=== PATIENT | female | born 1990 | race Caucasian/White ===

== ENCOUNTER 2022-02-12 09:39 | Emergency (ER) | payer MEDICAID ==
[2022-02-12 11:44] LABS: Bilirubin,Urine NEG (Negative); Blood,Urine MOD (Negative); Color,Urine Yellow (Yellow); Protein,Urine <15 mg/dL mg/dL (Negative)
[2022-02-12] MEDS ORDERED: FAMOTIDINE 20 MG/2 ML INJ IV ONE (12:35)
[2022-02-12] MEDS ORDERED: KETOROLAC 30 MG/1 ML INJ IV ONE (12:35)
[2022-02-12] MEDS ORDERED: SODIUM CHLORIDE 0.9% 1000 ML 1,000 ML IV ONE ×2 (12:35→15:47)
[2022-02-12] MEDS ORDERED: ONDANSETRON 4 MG/2 ML INJ IV ONE ×2 (12:35→15:47)
--- NOTE | 2022-02-12 12:51 | Emergency Department Report ---
<JENARO COLEMAN - Last Filed: 02/12/22 14:25> ED Abdominal Pain HPI - General Chief Complaint: Abdominal Pain Stated Complaint: VAG BLEED (POSS MISCARRIAGE) Time Seen by Provider: 02/12/22 12:22 Source: patient Mode of arrival: Ambulatory Limitations: No Limitations - History of Present Illness Initial Comments: 31-year-old female with no significant past medical surgical history complains of abdominal pain, nausea, vomiting, fever and chills for the past 3 days. Patient states symptoms started "after having a miscarriage". Patient reports that 4 days ago she was having nausea and has a history of nausea hyperemesis with previous pregnancies so she took a test. By the next day she was having suprapubic cramping and heavy vaginal bleeding. Patient initially soaked through 2 pads but then continued to have intermittent bleeding over the last 3 days. This morning bleeding improved and now reported as only brown spotting. Since bleeding onset patient has had fevers, chills, headache, and fatigue. Yesterday temperature was 101. She denies diarrhea, dysuria, cough, or shortness of breath. She is unvaccinated for Covid. Patient did not have any care and is basing her status on home test and her miscarriage diagnosis based on her heavy vaginal bleeding the day after having a positive test. She has a history of 7 living children, 2 miscarriages, and 1 stillborn. She reports her has had a vasectomy a year ago. - Related Data Allergies Allergy/AdvReac Type Severity Reaction Status Date / Time No Known Allergies Allergy Verified 02/12/22 10:22 ED Review of Systems Comment: All other systems reviewed and negative ED Past Medical Hx - Past Medical History Previous Medical History?: No - Social History Smoking Status: Never Smoker Substance Use Type: None ED Physical Exam - General Limitations: No Limitations - Other Other exam information: General: No acute distress Head: Atraumatic Eyes: normal appearance ENT: Moist mucous membranes Neck: Normal appearance, no midline tenderness, no nuchal rigidity Chest: Clear to auscultation bilaterally CV: Regular rate and rhythm Abdomen: Soft, normal bowel sounds, suprapubic tenderness, nondistended, no rebound or guarding Back: Normal inspection Extremity: Normal inspection, full range of motion Neuro: Alert O x 3, no facial asymmetry, speech clear, no gross motor sensory deficit Psych: Appropriate behavior Skin: No rash ED Course - Reevaluation(s) Reevaluation #1: 02/12/22 14:20 Patient reassessed after pepcid, normal saline, and Zofran. She states her nausea is much improved. She states she still has a headache. test came back positive at this time. Toradol canceled and Tylenol 1 g ordered. Ultrasound ordered ED Medical Decision Making - Lab Data Result diagrams: 02/12/22 13:09 02/12/22 13:09 Lab Results 02/12/22 02/12/22 02/12/22 Range/Units 13:09 13:09 13:09 WBC 13.3 H (4.5-11.0) K/mm3 RBC 4.78 (3.65-5.03) M/mm3 Hgb 14.9 H (10.1-14.3) gm/dl Hct 44.8 H (30.3-42.9) % MCV 94 (79-97) fl MCH 31 (28-32) pg MCHC 33 (30-34) % RDW 12.7 L (13.2-15.2) % Plt Count 226 (140-440) K/mm3 Lymph % (Auto) 12.3 L (13.4-35.0) % Walsh % (Auto) 4.7 (0.0-7.3) % Eos % (Auto) 0.1 (0.0-4.3) % Baso % (Auto) 0.2 (0.0-1.8) % Lymph # (Auto) 1.6 (1.2-5.4) K/mm3 Walsh # (Auto) 0.6 (0.0-0.8) K/mm3 Eos # (Auto) 0.0 (0.0-0.4) K/mm3 Baso # (Auto) 0.0 (0.0-0.1) K/mm3 Seg Neutrophils % 82.7 H (40.0-70.0) % Seg Neutrophils # 11.0 H (1.8-7.7) K/mm3 Sodium 138 (137-145) mmol/L Potassium 4.3 (3.6-5.0) mmol/L Chloride 104.6 (98-107) mmol/L Carbon Dioxide 21 L (22-30) mmol/L Anion Gap 17 mmol/L BUN 6 L (7-17) mg/dL Creatinine 0.3 L (0.6-1.2) mg/dL Estimated GFR > 60 ml/min BUN/Creatinine Ratio 20 % Glucose 91 (65-100) mg/dL Calcium 8.8 (8.4-10.2) mg/dL Total Bilirubin 0.40 (0.1-1.2) mg/dL AST 10 (5-40) units/L ALT 14 (7-56) units/L Alkaline Phosphatase 66 (35-129) units/L Total Protein 6.8 (6.3-8.2) g/dL Albumin 4.2 (3.9-5) g/dL Albumin/Globulin Ratio 1.6 % Lipase (13-60) units/L HCG, Quant 37148 H (0-4) mIU/mL Urine Color (Yellow) Urine Turbidity (Clear) Urine pH (5.0-7.0) Ur Specific [place] (1.003-1.030) Urine Protein (Negative) mg/dL Urine Glucose (UA) (Negative) mg/dL Urine Ketones (Negative) mg/dL Urine Blood (Negative) Urine Nitrite (Negative) Urine Bilirubin (Negative) Urine Urobilinogen (<2.0) mg/dL Ur Leukocyte Esterase (Negative) Urine WBC (Auto) (0.0-6.0) /HPF Urine RBC (Auto) (0.0-6.0) /HPF U Epithel Cells (Auto) (0-13.0) /HPF Blood Type 02/12/22 02/12/22 02/12/22 Range/Units 13:17 13:17 Unknown WBC (4.5-11.0) K/mm3 RBC (3.65-5.03) M/mm3 Hgb (10.1-14.3) gm/dl Hct (30.3-42.9) % MCV (79-97) fl MCH (28-32) pg MCHC (30-34) % RDW (13.2-15.2) % Plt Count (140-440) K/mm3 Lymph % (Auto) (13.4-35.0) % Walsh % (Auto) (0.0-7.3) % Eos % (Auto) (0.0-4.3) % Baso % (Auto) (0.0-1.8) % Lymph # (Auto) (1.2-5.4) K/mm3 Walsh # (Auto) (0.0-0.8) K/mm3 Eos # (Auto) (0.0-0.4) K/mm3 Baso # (Auto) (0.0-0.1) K/mm3 Seg Neutrophils % (40.0-70.0) % Seg Neutrophils # (1.8-7.7) K/mm3 Sodium (137-145) mmol/L Potassium (3.6-5.0) mmol/L Chloride (98-107) mmol/L Carbon Dioxide (22-30) mmol/L Anion Gap mmol/L BUN (7-17) mg/dL Creatinine (0.6-1.2) mg/dL Estimated GFR ml/min BUN/Creatinine Ratio % Glucose (65-100) mg/dL Calcium (8.4-10.2) mg/dL Total Bilirubin (0.1-1.2) mg/dL AST (5-40) units/L ALT (7-56) units/L Alkaline Phosphatase (35-129) units/L Total Protein (6.3-8.2) g/dL Albumin (3.9-5) g/dL Albumin/Globulin Ratio % Lipase 27 (13-60) units/L HCG, Quant (0-4) mIU/mL Urine Color Yellow (Yellow) Urine Turbidity Clear (Clear) Urine pH 8.0 H (5.0-7.0) Ur Specific [place] 1.017 (1.003-1.030) Urine Protein <15 mg/dl (Negative) mg/dL Urine Glucose (UA) Neg (Negative) mg/dL Urine Ketones 20 (Negative) mg/dL Urine Blood Mod (Negative) Urine Nitrite Neg (Negative) Urine Bilirubin Neg (Negative) Urine Urobilinogen 4.0 (<2.0) mg/dL Ur Leukocyte Esterase Neg (Negative) Urine WBC (Auto) 1.0 (0.0-6.0) /HPF Urine RBC (Auto) 6.0 (0.0-6.0) /HPF U Epithel Cells (Auto) 1.0 (0-13.0) /HPF Blood Type A POSITIVE - Medical Decision Making 31-year-old female presents to the hospital with complaints of positive test followed by heavy vaginal bleeding. Patient then developed infectious symptoms of fever, chills, headache, lower abdominal pain, nausea, and vomiting. ED work-up reveals positive hCG quant and leukocytosis this. Patient does not have respiratory symptoms. UA is negative. Patient is Rh+ without signs of anemia Patient will be signed out to oncoming provider Dr Martínez to do the following Follow-up on ultrasound report to confirm IUP versus signs of miscarriage, consult PACKAGING TECH as appropriate Reassess headache after Tylenol Reassess symptoms dispo appropriate ED Disposition Clinical Impression: Nausea and vomiting during , Abdominal pain during intrauterine Disposition: HOME / SELF CARE / HOMELESS Condition: Stable Instructions: Abdominal Pain (ED) Referrals: PRIMARY CARE, [Primary Care Provider] - 3-5 Days <CHINMAY MARTÍNEZ - Last Filed: 02/12/22 17:20> ED Review of Systems ROS: Stated complaint: VAG BLEED (POSS MISCARRIAGE) Other details as noted in HPI ED Course Vital Signs 02/12/22 02/12/22 10:20 12:31 Temperature 98.5 F Pulse Rate 89 Respiratory 17 Rate Blood Pressure 142/66 O2 Sat by Pulse 99 98 Oximetry ED Medical Decision Making - Lab Data Result diagrams: 02/12/22 13:09 02/12/22 13:09 - Radiology Data Radiology results: report reviewed - Medical Decision Making US showed 5 weeks 2 days IUP , no compication pt still feel nauseos oredered another litre of fluids and zofran and benadryl , feels better vss no bleeding , will follow up with Ob, not sure if she wants to keep the baby , Critical care attestation.: If time is entered above; I have spent that time in minutes in the direct care of this critically ill patient, excluding procedure time. ED Disposition Is pt being admited?: No Does the pt Need Aspirin: No
[2022-02-12 13:33] LABS: Basophils % (Auto) 0.2 % (0.0-1.8); Eosinophils % (Auto) 0.1 % (0.0-4.3); Hematocrit 44.8 % (30.3-42.9); Hemoglobin 14.9 gm/dl (10.1-14.3); Lymphocytes # (Auto) 1.6 K/mm3 (1.2-5.4); Lymphocytes % (Auto) 12.3 % (13.4-35.0); Mean Corpuscular HGB Conc 33 % (30-34); Mean Corpuscular Volume 94 fl (79-97); Monocytes # (Auto) 0.6 K/mm3 (0.0-0.8); Monocytes % (Auto) 4.7 % (0.0-7.3); Platelet Count 226 K/mm3 (140-440); Red Blood Count 4.78 M/mm3 (3.65-5.03); Red Cell Distribution Width 12.7 % (13.2-15.2)
[2022-02-12 13:48] LABS: Alanine Aminotransferase 14 units/L (7-56); Albumin 4.2 g/dL (3.9-5); Blood Urea Nitrogen 6 mg/dL (7-17); Calcium 8.8 mg/dL (8.4-10.2); Hemolysis Index 5
[2022-02-12 13:53] LABS: BUN/Creatinine Ratio 20
[2022-02-12] MEDS ORDERED: ACETAMINOPHEN 500 MG TAB PO ONE (14:19)
[2022-02-12] MEDS ORDERED: D5W/0.9% NACL 1,000 ML IV SCH (15:00)
--- NOTE | 2022-02-12 15:33 | Ultrasound Report ---
EXAMINATION: Obstetrical Ultrasound, 02/12/2022 INDICATION: Pelvic pain and vaginal bleeding in early . COMPARISON: None FINDINGS: There is a single, living intrauterine . [place]-rump length = 0.3 cm = 5 weeks, 6 day(s). The bilateral adnexal regions appear within normal limits. The right ovary measures 3.1 x 1.8 x 2.5 c m. The left ovary measures 2.7 x 1.5 x 2.7 cm. There is a small amount of free pelvic fluid IMPRESSION: 1. Single intrauterine with gestational age of 5 weeks 6 days. Signer Name: Gissell Vega MD Signed: 02/12/2022 3:29 PM Workstation Name: [id number]
--- NOTE | 2022-02-12 15:33 | Ultrasound Report ---
EXAMINATION: Obstetrical Ultrasound, 02/12/2022 INDICATION: Pelvic pain and vaginal bleeding in early . COMPARISON: None FINDINGS: There is a single, living intrauterine . [place]-rump length = 0.3 cm = 5 weeks, 6 day(s). The bilateral adnexal regions appear within normal limits. The right ovary measures 3.1 x 1.8 x 2.5 c m. The left ovary measures 2.7 x 1.5 x 2.7 cm. There is a small amount of free pelvic fluid IMPRESSION: 1. Single intrauterine with gestational age of 5 weeks 6 days. Signer Name: Gissell Vega MD Signed: 02/12/2022 3:29 PM Workstation Name: [id number]
[2022-02-12] MEDS ORDERED: diphenhydrAMINE 50 MG/ML VIAL IV ONE (15:47)
[2022-02-12 17:34] VITALS: BP 109/80
== END 2022-02-12 17:31 | disposition home or self-care (01) ==
LOC: ED 09:39
DX: O21.9 Vomiting of pregnancy, unspecified (principal); O21.8 Other vomiting complicating pregnancy; R10.9 Unspecified abdominal pain; Z3A.01 Less than 8 weeks gestation of pregnancy
CPT/HCPCS: 36415; 76801; 76817; 80053; 81001; 83690; 84702; 85025; 86850; 86900; 86901; 96361; 96374; 96375; 96376; 99284; J1200; J1885; J2405; J3490; J7030; Q0162